=== PATIENT | female | born 2005 | race Caucasian/White ===

== ENCOUNTER 2023-02-03 13:47 | Emergency (ER) | payer OTHER ==
[~2023-02-03] VITALS: Ht 167.6 cm; Wt 73.0 kg
[2023-02-03 14:30] VITALS: O2SAT 97
[2023-02-03] MEDS ORDERED: MACROBID 100 M100 MG PO (15:40)
[2023-02-03] MEDS ORDERED: PYRIDIUM200 MG PO (15:41)
[2023-02-03] MEDS ORDERED: CEFTRIAXONE 500 MG VIAL IM ONE (15:45)
[2023-02-03] MEDS ORDERED: AZITHROMYCIN 250 MG TAB PO ONE (15:45)
== END 2023-02-03 16:19 | disposition home or self-care (01) ==
LOC: FSED 13:53
DX: R30.0 Dysuria (principal); N39.0 Urinary tract infection, site not specified
CPT/HCPCS: 81003; 99282; J0696